=== PATIENT | female | born 1950 | race Caucasian/White ===

== ENCOUNTER 2021-04-17 05:55 | Day surgery (SDC) | payer MEDICARE ==
[~2021-04-17] VITALS: Ht 162.6 cm; Wt 86.4 kg
--- NOTE | ~2021-04-17 | OR ---
[facility] [address] [place], [place] [address] Draft DATE OF OPERATION: 04/17/2021 SURGEON: An Castro MD PREOPERATIVE DIAGNOSIS: Thickened endometrial stripe. POSTOPERATIVE DIAGNOSIS: Thickened endometrial stripe, endometrial lesion. PROCEDURE: Hysteroscopy, resection of the endometrial lesion. ANESTHESIA: General LMA. ESTIMATED BLOOD LOSS: Minimal. DRAINS: None. INDICATIONS AND FINDINGS: The patient is a 70-year-old female, who was found to have a very thickened endometrial stripe on MRI for her back pain. The stripe was 18 mm. Endometrial biopsy in the office was unsuccessful. She has multiple risk factors for endometrial hyperplasia and cancer and hysteroscopy was recommended. At the time of surgery, exam under anesthesia revealed a top-normal sized uterus. There were no adnexal masses. The uterus sounded to 11 cm. The cavity appeared mostly atrophic except there were multiple lesions across the anterior fundus and a smaller lesion at the right lateral fundus. DESCRIPTION OF PROCEDURE: The patient was prepped and draped in the dorsal lithotomy position. A weighted speculum was placed and the anterior lip of the cervix was visualized and grasped with a single-tooth tenaculum. The small dilators were used initially to open the cervix. At that point, the could be placed and the uterus sounded to 11 cm. The endocervical canal was then dilated to a #11 dilator. MyoSure device was then placed. After evaluation of the cavity, MyoSure Lite was introduced and the lesions across the anterior fundus and the right lateral fundus were removed without any difficulty. Following this, the procedure was terminated. The tenaculum was removed. There was no PATIENT NAME: JOB LEY OPERATIVE REPORT DATE OF : 48 REPORT #: [id number] PHYSICIAN: AN CASTRO MD PCP: LENY TURPIN [facility] REPORT IS CONFIDENTIAL AND NOT TO BE RELEASED WITHOUT AUTHORIZATION [facility] [address] [place] [id number] Draft evidence of any ongoing bleeding. Weighted speculum was removed and the patient was taken to the recovery room in good condition. All sponge and needle counts were correct. An Castro MD PJW/MODL /[id number] cc: Leny Sanchez PA-C Copies: ~ PATIENT NAME: JOB LEY OPERATIVE REPORT DATE OF : 48 REPORT #: [id number] PHYSICIAN: AN CASTRO MD PCP: LENY TURPIN PAC REPORT IS CONFIDENTIAL AND NOT TO BE RELEASED WITHOUT AUTHORIZATION
[~2021-04-17 05:55] MED LIST: ASPIR-LOW81 MG PO; CYCLOBENZAPRINE10 MG PO; ELIQUIS5 MG PO; HYDROCHLOROTHIA25 MG PO; HYDROCODON-ACE1 EAC8 PO; IPRAT-ALBUT 0.5-3 ML INH; LANTUS100 UNITS/ SUB-Q; LISINOPRIL20 MG PO; MELOXICAM7.5 MG PO; METFORMIN HCL500 MG PO; NAPROXEN500 MG PO; NORVASC10 MG PO; NOVOLOG100 UNIT/1 SUB-Q; OMEPRAZOLE20 MG PO; OZEMPIC1 MG/0.71 SQ; PROVENTIL HFA6.7 GM INH; SERTRALINE HCL50 MG PO; SIMVASTATIN20 MG PO; TRAZODONE HCL100 MG PO; VENTOLIN HFA18 GM; VITAMIN B122500 MCG PO; VITAMIN D1000 UNI1 PO
--- NOTE | 2021-04-17 07:05 | NUR ---
[id number]: PT ARRIVES TO DS DEPT IN WITH PERSONAL CANE IN HAND. PT STATES, "I AM FEELING REALLY DIZZY" AND THIS RN PUSHES PT TO DS RM 4. PT STATES, "THIS IS NOTHING NEW, HAPPENS ABOUT 3 TIMES A WEEK." PT ALSO STATES THAT SHE HAS "PASSED OUT AND FALLEN BEFORE." PT CBG CHECKED, 46 AND WENDIE DELGADILLO NOTIFIED. PT REPORTS WHEN SHE FEELS LIKE THIS SHE "DRINKS ORANGE JUICE AND FEELS FINE." PT REPORTS TAKING 20 UNITS OF LANTUS INSTEAD OF HER USUAL 30 UNITS LAST NIGHT. SON IN LAW, RADHA AT BEDSIDE TODAY.
--- NOTE | 2021-04-17 08:19 | NUR ---
04/17/21 0819 Melani Morgan 0753 PT ARRIVED IN PACU NON RESPONSIVE TO NOXIOUS STIMULI WITH OPA IN PLACE. CHIN LIFT HELD BY RN. 0756 PT REACTIVE. OPA REMOVED. [address] AND ANESTHESIA AWARE WITH NO NEW ORDERS. 0815 AT BEDSIDE TALKING WITH PT.
--- NOTE | 2021-04-17 08:35 | NUR ---
0830: PT ARRIVES TO DS RM 4 FROM PACU AWAKE AND ALERT. PT DENIES NAUSEA OR PAIN WHEN ASKED, PROVIDED ICED WATER AND CRACKERS. SON IN LAW, RADHA BACK IN ROOM FROM [place]. DC CRITERIA EXPLAINED, CALL [facility] WITHIN REACH.
--- NOTE | 2021-04-17 09:17 | NUR ---
[id number]: PT USES CALL LIGHT TO NOTIFY RN OF URGE TO VOID. THIS RN AND [facility] VARNISHER PLASTICOATER ASSIST PT TO SIDE OF BED PRIOR TO STANDING. PT DENIES ANY DIZZINESS OR NAUSEA WITH POSITION CHANGE, AMBULATES TO BATHROOM WITH STEADY GAIT AND RN ASSIST. PT ABLE TO VOID APPROX 300 MLS PINK TINGED URINE WITH NO CLOTS PRESENT. PT BACK TO DS ROM 4, SON IN LAW AT BEDSIDE AND CALL LIGHT WITHIN REACH.
--- NOTE | 2021-04-17 10:17 | NUR ---
[id number]: DC CRITERIA MET, PT DRESSES SELF AND OPENS CURTAIN WHEN FINISHED. [facility] PRIMER SUPERVISOR REMOVED IV WITH THIS RN SUPERVISION, PRESSURE COBAN DRESSING PLACED AND PT ENCOURAGED TO REMOVE WITHIN 10-15 MINUTES. DC INSTRUCTIONS PRESENTED VERBALLY AND WRITTEN TO PT AND SON IN LAW, BOTH AWARE OF NEED TO TAKE PAIN PRESCRIPTION TO PHARMACY TO HAVE FILLED. PT DC VIA WC TO SON IN LAW WAITING AT MAIN HOSPITAL ENTRANCE IN PERSONAL VEHICLE TO HOME.
--- NOTE | 2021-04-18 17:09 | PATH ---
[facility] [address] [place], [place] [address] Signed SPECIMEN(S): A ENDOMETRIAL LESION SPECIMEN SOURCE: A. ENDOMETRIAL LESION CLINICAL HISTORY: Hysteroscopy DC. Increased endometrial stripe thickness. FINAL PATHOLOGIC DIAGNOSIS: Endometrium, curettage: - Fragments of benign endometrial polyp. - Background inactive endometrium - No hyperplasia or neoplasia identified. BRP:cml:C2NR MICROSCOPIC EXAMINATION: Histologic sections of all submitted blocks are examined by light microscopy. These findings, together with the gross examination, support the pathologic diagnosis. GROSS DESCRIPTION: The specimen, labeled "MR, A," and designated on the requisition "endometrial lesion," is received in formalin and consists of fisher-pink soft tissue fragments with mucus and clot material measuring 9.0 x 6.2 x 0.7 cm in aggregate. Specimen is filtered and entirely submitted in cassettes (A1-A6). AT (under the direct supervision of a pathologist) The Gross Description was prepared using a voice recognition system. The report was reviewed for accuracy; however, sound-alike word errors, addition and/or deletions may occur. If there is any question about this report, please contact Client Services. PERFORMING LABORATORY: The technical component was performed by [employer], [address] [place] [id number] (Oil Well Driller: Chely Elias MD; CLIA# [id number]) Professional interpretation was performed by [employer], [facility], [address] [place] [id number] (CLIA# [id number]). Diagnostician: Alber Thompson MD Pathologist PATIENT NAME: JOB LEY PATHOLOGY DATE OF : 48 REPORT #: [id number] PHYSICIAN: [facility]UNO PATHOLOGY PCP: LENY TURPIN PAC REPORT IS CONFIDENTIAL AND NOT TO BE RELEASED WITHOUT AUTHORIZATION [address] [place] [address] Signed Electronically Signed 04/18/2021 Copies: ~ PATIENT NAME: JOB LEY PATHOLOGY DATE OF : 48 REPORT #: [id number] PHYSICIAN: NUNO PATHOLOGY PCP: LENY TURPIN PAC REPORT IS CONFIDENTIAL AND NOT TO BE RELEASED WITHOUT AUTHORIZATION
== END 2021-04-17 09:35 | disposition home or self-care (01) ==
LOC: DS 05:55
PROVIDERS: ATTEND Obstetrics & Gynecology
PROC: 0U5B8ZZ Destruction of Endometrium, Via Natural or Artificial Opening Endoscopic (ICD-10-PCS; principal; 2021-04-17 07:30)
DX: N84.0 Polyp of corpus uteri (principal); E11.9 Type 2 diabetes mellitus without complications; Z79.4 Long term (current) use of insulin; Z79.01 Long term (current) use of anticoagulants; E78.5 Hyperlipidemia, unspecified; J45.40 Moderate persistent asthma, uncomplicated; Z87.891 Personal history of nicotine dependence
CPT/HCPCS: J1100; J1644; J1885; J2250; J2405; J2704; J2765; J3010; J7121

== ENCOUNTER 2023-12-15 13:55 | Emergency (ER) | payer MEDICARE ==
[~2023-12-15] VITALS: Ht 165.1 cm; Wt 85.7 kg
[2023-12-15] MEDS ORDERED: ESCITALOPRAM OX20 MG PO (15:01)
[2023-12-15 15:03] LABS: BASOPHILS 0.8 % (0-2); EOSINOPHILS 1.8 % (0-6); HEMATOCRIT 45.6 % (35.0-50.0); HEMOGLOBIN 15.2 g/dL (12.0-18.0); LYMPHOCYTES 28.1 % (24-44); MCH 29.8 (27-36); MCHC 33.4 g/dl (30-36); MCV 89.2 fl (81-99); MONOCYTES 7.4 % (0-12); NEUTROPHILS 61.9 % (39-80); PLATELET COUNT 284 K/uL (140-440); RBC 5.11 M/ul (4.3-5.7); RDW 12.6 (10.5-15.0)
[2023-12-15 15:15] LABS: ALBUMIN 3.3 g/dL (3.4-5.0); ALBUMIN/GLOBULIN RATIO 0.85 (1.1-2.4); BILIRUBIN, TOTAL 0.3 ng/dL (0.2-1.0); BUN/CREATININE RATIO 15.1 (6.0-28.6); CALCIUM 10.1 mg/dL (8.5-10.1); CREATININE, SERUM 1.39 mg/dL (0.55-1.02); MAGNESIUM 1.4 mg/dL (1.8-2.4); PROTEIN, TOTAL 7.2 g/dL (6.4-8.2)
[2023-12-15 15:52] LABS: INFLUENZA B NAA NEGATIVE (NEGATIVE); RESPIRATORY SYNCYTIAL VIR NAA NEGATIVE (NEGATIVE)
[2023-12-15] MEDS ORDERED: SODIUM CHLORIDE 0.9% 1,000 ML IV PRN (16:15)
[2023-12-15] MEDS ORDERED: MAGNESIUM SULFATE 2 GM/50 ML BAG IV ONE (16:45)
[2023-12-15] MEDS ORDERED: POTASSIUM CHLORIDE 10 MEQ TABCR PO ONE (17:00)
[2023-12-15 17:05] LABS: BILIRUBIN, URINE NEGATIVE (negative); BLOOD/HGB, URINE NEGATIVE (Negative); KETONE, URINE NEGATIVE (Negative); LEUK ESTERASE, URINE NEGATIVE (negative); NITRITE, URINE NEGATIVE (negative); PH, URINE 5.5 (5-7)
[2023-12-15 18:17] VITALS: BP 152/82
== END 2023-12-15 18:19 | disposition home or self-care (01) ==
LOC: ED 13:55
PROVIDERS: Emergency Medicine
DX: E83.42 Hypomagnesemia (principal); E87.6 Hypokalemia; J44.9 Chronic obstructive pulmonary disease, unspecified; E11.9 Type 2 diabetes mellitus without complications; I10 Essential (primary) hypertension; Z86.73 Personal history of transient ischemic attack (TIA), and cerebral infarction without residual deficits; Z87.891 Personal history of nicotine dependence; Z88.8 Allergy status to other drugs, medicaments and biological substances; Z79.899 Other long term (current) drug therapy; Z79.01 Long term (current) use of anticoagulants; Z79.4 Long term (current) use of insulin; Z11.52 Encounter for screening for COVID-19
CPT/HCPCS: 36415; 80053; 81003; 83735; 85025; 87502; 96365; 99284-25; A9270; J3475; J7030; U0002